=== PATIENT | female | born 1970 | race Caucasian/White ===

== ENCOUNTER 2023-03-29 07:30 | Emergency (ER) | payer MEDICAID, OTHER ==
[~2023-03-29] VITALS: Ht 172.7 cm; Wt 119.0 kg
[2023-03-29 08:10] VITALS: BP 144/54; PULSE 70; RESP 18; TEMP 97.3; O2SAT 98
[2023-03-29] MEDS ORDERED: TOB03OS OP (08:13)
== END 2023-03-29 08:19 | disposition home or self-care (01) ==
LOC: ER 07:30 → EDBD 07:30 → ER 08:17
DX: H10.33 Unspecified acute conjunctivitis, bilateral (principal); Z79.2 Long term (current) use of antibiotics

== ENCOUNTER 2023-04-21 17:11 | Emergency (ER) | payer MEDICAID ==
[~2023-04-21] VITALS: Ht 170.2 cm; Wt 113.6 kg
[~2023-04-21 17:11] MED LIST: TOB03OS OP
[2023-04-21 18:26] VITALS: BP 124/94; PULSE 80; RESP 19; TEMP 97.1; O2SAT 98
[2023-04-21] MEDS ORDERED: BENZ100C97 PO (18:51)
[2023-04-21] MEDS ORDERED: AUG875T PO (18:51)
== END 2023-04-21 18:56 | disposition home or self-care (01) ==
LOC: ER 17:11
DX: H66.93 Otitis media, unspecified, bilateral (principal); R05.9 Cough, unspecified; Z79.2 Long term (current) use of antibiotics